=== PATIENT | male | born 1985 ===

== ENCOUNTER 2021-09-06 18:12 | Emergency (ER) | payer MEDICAID ==
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
[2021-09-07] MEDS ORDERED: levETIRAcetam 500 MG/5 ML Solution ML 473 ml Bottle PO STA (02:42)
[2021-09-07] MEDS ORDERED: levETIRAcetam 250 MG Tab ONE (02:46)
[2021-09-07] MEDS ORDERED: Nicotine 14 MG/24 Hr Patch TRDERM SCH (03:00)
[2021-09-07] MEDS ORDERED: OLANZapine 5 MG Tab PO ONE (03:20)
[2021-09-07] MEDS ORDERED: levETIRAcetam 500 MG/5 ML Solution ML 473 ml Bottle PO SCH (09:00)
[2021-09-07] MEDS: Nicotine 14 MG/24 Hr Patch TRDERM SCH (20:50)
[2021-09-07] MEDS: levETIRAcetam 250 MG Tab PO SCH (20:51)
[2021-09-08] MEDS: levETIRAcetam 250 MG Tab PO SCH ×2 (09:04→22:08)
[2021-09-08] MEDS: Nicotine 14 MG/24 Hr Patch TRDERM SCH (22:09)
== END 2021-09-09 08:30 ==
LOC: JP.ED 18:12
DX: R45.851 Suicidal ideations (principal); F15.10 Other stimulant abuse, uncomplicated; Z88.5 Allergy status to narcotic agent
CPT/HCPCS: 36415; 80053; 80143; 80179; 80305-QW; 80307; 81003; 85027; 99285